=== PATIENT | female | born 1945 | race Caucasian/White ===

== ENCOUNTER 2019-03-18 21:28 | Emergency (ER) | payer MEDICARE, OTHER ==
[~2019-03-18] VITALS: Ht 160 cm; Wt 77.3 kg
[~2019-03-18 21:28] MED LIST: AMLO1CAP72 PO; ATEN-138 PO; DIAZ5TAB PO; EZET1TAB10 PO; LEVO88TA36 PO; LORA-408 PO; PIOG45TA9 PO; RABE20TA18 PO
[2019-03-18 21:31] VITALS: Ht 160 cm; Wt 77.3 kg
[2019-03-18] MEDS ORDERED: ONDANSETRON 4 MG INJ IV STA ×2 (22:03→22:15)
[2019-03-18] MEDS ORDERED: SOD CHLORIDE 0.9% 1,000 ML IV STA (22:03)
[2019-03-18] MEDS ORDERED: MECLIZINE 12.5 MG TAB PO ONE (22:30)
[2019-03-18] MEDS ORDERED: METOCLOPRAMIDE 10 MG INJ IV ONE (23:00)
[2019-03-19] MEDS ORDERED: DIAZEPAM LIQ 5 MG/ML PO SYG PO ONE (00:30)
[2019-03-19] MEDS ORDERED: DIAZEPAM 5 MG TAB PO ONE (01:00)
[2019-03-19 01:02] VITALS: BP 138/68; PULSE 72; RESP 16
== END 2019-03-19 01:03 | disposition home or self-care (01) ==
LOC: E/R 21:28
DX: H81.399 Other peripheral vertigo, unspecified ear (principal); I10 Essential (primary) hypertension; E11.9 Type 2 diabetes mellitus without complications; R55 Syncope and collapse
CPT/HCPCS: 70450; 80053; 81003; 82150; 83690; 84484; 85025; 85610; 85730; 87086; 93005; J2405; J2765; J7030; 96374; 96375